=== PATIENT | male | born 1965 | race African-American/Black ===

== ENCOUNTER 2017-08-24 06:50 | Emergency (ER) | payer BC ==
[2017-08-24 07:21] LABS: #Basophils 0.1 thou/uL (0.0-0.2); #Eosinphils 0.1 thou/uL (0.0-0.7); #Lymphocytes 1.7 thou/uL (1.20-3.40); #Monocytes 0.3 thou/uL (0.11-0.59); #Neutrophils 2.3 thou/uL (1.40-6.50); %Basophils 1.1 % (0.0-1.0); %Eosinophils 2.1 % (0.0-10.0); %Lymphocytes 38.4 % (21.0-51.0); %Monocytes 5.6 % (0.0-10.0); %Neutrophils 52.8 % (42.0-75.0); Hemoglobin 14.7 g/dL (14.0-18.0); Mean Corpuscular Hemoglobin 30.3 pg (27.0-31.0); Mean Corpuscular Volume 91.8 fl (80.0-94.0); Mean Platelet Volume 6.9 fL (7.4-10.4); Platelet Count 200 thou/uL (130-400); RBC Distribution Width 11.7 % (11.5-14.5); Red Blood Cell (RBC) Count 4.84 mill/uL (4.70-6.10); White Blood Cell (WBC) Count 4.4 thou/uL (4.8-10.8)
[2017-08-24 07:43] LABS: ALT (SGPT) 30 U/L (8-55); AST (SGOT) 24 U/L (5-34); Alkaline Phosphatase 65 U/L (40-150); Anion Gap 12 mmol/L (10-20); BUN (Urea Nitrogen) 19 mg/dL (8.4-25.7); Bilirubin, Total 0.5 mg/dL (0.2-1.2); CK (CPK) 304 U/L (30-200); Calc. Creatinine Clearance 0 mL/min (70-130); Calcium 9.5 mg/dL (7.8-10.44); Carbon Dioxide 27 mmol/L (22-29); Chloride 105 mmol/L (98-107); Estimated GFR-MDRD 84; Globulin 2.9 g/dL (2.4-3.5); Glucose 109 mg/dL (70-105); Potassium 4.5 mmol/L (3.5-5.1); Protein, Total 6.9 g/dL (6.0-8.3); Sodium 139 mmol/L (136-145)
[2017-08-24 07:46] LABS: CKMB 2.4 ng/mL (0-6.6); Troponin I Less than 0.010 ng/mL (< 0.028)
[2017-08-24] MEDS ORDERED: Lidocaine Viscous Sol 2% 15 ml UD Cup ONE (08:26)
[2017-08-24] MEDS ORDERED: Mag-Al 1200 mg/1200 mg/30 ML UDCUP ONE (08:26)
--- NOTE | 2017-08-24 09:40 | RAD ---
2 VIEWS CHEST: Date: 08/24/17 PROVIDED CLINICAL HISTORY: Chest pain. FINDINGS: No comparisons. Cardiac and mediastinal silhouette is within normal limits. Lungs appear clear. No pleural fluid or p neumothorax apparent. IMPRESSION: No evidence for an acute cardiopulmonary process. POS: [facility]
== END 2017-08-24 09:10 | disposition home or self-care (01) ==
LOC: ERS 06:50
DX: R07.89 Other chest pain (principal)
CPT/HCPCS: 36415; 71046; 80053; 82550; 82553; 84484; 85025; 93005

== ENCOUNTER 2018-10-13 14:37 | Outpatient (CLI) | payer BC ==
--- NOTE | 2018-10-13 15:35 | CT ---
CT STONE PROTOCOL: 10/13/18 HISTORY: Right upper quadrant pain. DISCLAIMER: Absence of oral and IV contrast reduces the sensitivity of the exam particularly for the evaluation of solid organs and bowel. FINDINGS: Comparison made with exam of 04/29/17. The lung bases are clear. No free air or free fluid is seen in the abdomen or pelvis. No calcified ga llstones are seen. A normal appearing appendix is present. A small ventral hernia containing nonobstr ucting small bowel is again seen. No calculi is seen in the kidneys, ureters or the urinary bladder. No hydroureteronephrosis is noted on either side. There are vascular calcifications without evidence of aneurysmal dilatation of the abdominal aorta. T here are degenerative changes in the spine. IMPRESSION: No CT evidence of urinary tract calculi or obstruction. POS: [facility]
== END 2018-10-13 14:38 | disposition home or self-care (01) ==
LOC: BICCT 14:37
PROVIDERS: ATTEND Urology
DX: M48.061 Spinal stenosis, lumbar region without neurogenic claudication (principal)
CPT/HCPCS: 74176

== ENCOUNTER 2018-12-31 13:08 | Outpatient (CLI) | payer BC ==
--- NOTE | 2018-12-31 15:27 | MRI ---
NONCONTRAST MRI LUMBAR SPINE: History: Low back pain, pain radiating to bilateral hips and down bilateral legs, greater on the left . Lumbar radiculopathy. Comparison: None available. FINDINGS: The visualized retroperitoneal structures demonstrate a normal non-enhanced MRI appearance. There is generalized heterogeneity of the bone marrow. No bone marrow edema is seen on fluid sensitiv e sequence. The conus medullaris is normal in appearance and terminates at the L1-2 level. T12-L1: There is a minimal disc osteophyte complex without significant narrowing of the central spina l canal. Neural foramina are patent. L1-2: There is loss of the intervertebral disc height. There are broad based disc osteophyte complexe s present and annular tear on the posterior margin of the intervertebral disc. Resulting narrowing of the central spinal canal is present. The neural foramina are patent. L2-3: There is a mild broad based disc osteophyte complex. This results in mild effacement of the tere tral aspect of the thecal sac. Minimal bilateral neural foraminal narrowing is present. L3-4: There is mild disc osteophyte complex present. There is moderate right and mild left sided neur al foraminal narrowing. L4-5: There is a mild broad based disc osteophyte complex. Facet hypertrophic changes are noted at th is level. There is mild to moderate right sided neural foraminal narrowing. The left neural foramen i s patent. L5-S1: No significant disc bulge or disc herniation. Facet hypertrophic changes are present at this l evel. The central spinal canal and neural foramina are patent. IMPRESSION: Mild disc degenerative changes at multiple levels with findings greatest at the L3-4 level where the re is moderate right sided neural foraminal narrowing present. POS: [facility]
== END 2018-12-31 13:09 | disposition home or self-care (01) ==
LOC: BICMRI 13:08
PROVIDERS: ATTEND Neurological Surgery
DX: M47.26 Other spondylosis with radiculopathy, lumbar region (principal); M48.061 Spinal stenosis, lumbar region without neurogenic claudication
CPT/HCPCS: 72148

== ENCOUNTER 2022-04-23 08:17 | Outpatient (CLI) | payer BC | END 2022-04-23 08:18 | disposition home or self-care (01) | LOC: MRI 08:17 | PROVIDERS: ATTEND Neurological Surgery | DX: M50.323 Other cervical disc degeneration at C6-C7 level (principal); M48.07 Spinal stenosis, lumbosacral region; M47.817 Spondylosis without myelopathy or radiculopathy, lumbosacral region; M51.37 Other intervertebral disc degeneration, lumbosacral region; M51.36 Other intervertebral disc degeneration, lumbar region | CPT/HCPCS: 72131; 72141 ==

== ENCOUNTER 2024-06-25 14:34 | Outpatient (CLI) | payer BC | END 2024-06-25 14:35 | disposition home or self-care (01) | LOC: BICRAD 14:34 | PROVIDERS: ATTEND Family Medicine | DX: M47.22 Other spondylosis with radiculopathy, cervical region (principal); M48.061 Spinal stenosis, lumbar region without neurogenic claudication; M25.512 Pain in left shoulder; M47.816 Spondylosis without myelopathy or radiculopathy, lumbar region | CPT/HCPCS: 72052; 72100 ==